=== PATIENT | female | born 1970 | race Two or more races ===

== ENCOUNTER → 2022-11-30 | Outpatient (CLI) | payer MEDICAID ==
[~2022-11-30] VITALS: Ht 167.6 cm; Wt 72.6 kg
[~2022-11-30] MED LIST: ADENOSINE 61 MG in GIVE UN-DILUTED 0 ML IV STA
[2022-11-30 08:23] VITALS: BP 124/80
== END | disposition home or self-care (01) ==
LOC: XYW 07:33
PROVIDERS: ATTEND Specialist
DX: R07.9 Chest pain, unspecified (principal); I10 Essential (primary) hypertension
CPT/HCPCS: 78452; 93017; A9500; J0153